=== PATIENT | female | born 1930 | race Caucasian/White ===

== ENCOUNTER 2016-09-23 13:46 | Emergency (ER) | payer MEDICARE ==
[2016-09-23] MEDS ORDERED: traMADol 50 MG TABLET PO STA (14:27)
[2016-09-23] MEDS ORDERED: traMADol 50 MG TABLET PO ONE (14:29)
[2016-09-23] MEDS ORDERED: DEXAMETHASONE 10 MG/ML VIAL PO STA (14:29)
[2016-09-23] MEDS ORDERED: DEXAMETHASONE 10 MG/ML VIAL ONE (14:33)
[2016-09-23] MEDS ORDERED: CHERRY SYRUP 10 ML UDC PO ONE (14:33)
== END 2016-09-23 17:02 | disposition home or self-care (01) ==
DX: M25.561 Pain in right knee (principal); M17.11 Unilateral primary osteoarthritis, right knee; M81.0 Age-related osteoporosis without current pathological fracture; I48.91 Unspecified atrial fibrillation; Z79.01 Long term (current) use of anticoagulants
CPT/HCPCS: 73564; 93971; 99283; A9270

== ENCOUNTER 2017-05-26 03:02 | Outpatient (CLI) | payer MEDICARE | END 2017-05-26 03:03 | disposition short-term general hospital (02) | LOC: EMS 03:02 | PROVIDERS: ATTEND Surgery | DX: R51 Headache (principal); W18.39XA Other fall on same level, initial encounter; Y92.003 Bedroom of unspecified non-institutional (private) residence as the place of occurrence of the external cause | CPT/HCPCS: A0425; A0429 ==

== ENCOUNTER 2017-09-25 09:08 | Outpatient (CLI) | payer MEDICARE | END 2017-09-25 09:09 | disposition EMS.NT | LOC: EMS 09:08 | PROVIDERS: ATTEND Surgery | DX: S70.311A Abrasion, right thigh, initial encounter (principal); W06.XXXA Fall from bed, initial encounter; Y92.003 Bedroom of unspecified non-institutional (private) residence as the place of occurrence of the external cause ==

== ENCOUNTER 2017-10-26 15:29 | Outpatient (CLI) | payer MEDICARE | END 2017-10-26 23:59 | disposition EMS.NT | LOC: EMS 15:29 | PROVIDERS: ATTEND Surgery | DX: R44.3 Hallucinations, unspecified (principal); R45.89 Other symptoms and signs involving emotional state ==

== ENCOUNTER 2017-11-01 08:00 | Outpatient (CLI) | payer MEDICARE ==
[2017-11-01 19:17] LABS: BILIRUBIN,URINE NEGATIVE (NEGATIVE); GLUCOSE, URINE (UA) NEGATIVE (NEGATIVE); KETONES,URINE (UA) NEGATIVE (NEGATIVE); LEUKOCYTE ESTERASE, URINE NEGATIVE (NEGATIVE); NITRITE,URINE NEGATIVE (NEGATIVE); OCCULT BLOOD,URINE NEGATIVE (NEGATIVE); PH,URINE 6.5 PH (5.0-7.5); PROTEIN,URINE NEGATIVE (NEGATIVE); UROBILINOGEN,URINE 0.2 (NORMAL) E.U./dL (NORMAL)
[2017-11-01 19:27] LABS: BACTERIA,URINE Few /HPF (None Seen); CLARITY,URINE CLEAR (CLEAR); CRYSTALS,URINE 3-5 Calcium Oxalate /LPF; RBC,URINE None Seen /HPF (0-5); SQUAMOUS EPITHELIAL CELL,UR MANY Squamous (<= Few)
== END 2017-11-01 08:01 | disposition home or self-care (01) ==
LOC: LAB.WCP 08:00
PROVIDERS: ATTEND Physician Assistant Medical
DX: R41.0 Disorientation, unspecified (principal); R53.1 Weakness
CPT/HCPCS: 81001; 87086

== ENCOUNTER 2017-11-18 14:11 | Outpatient (CLI) | payer MEDICARE ==
[2017-11-18 18:55] LABS: BASOPHILS % (AUTO) 0.4 %; EOSINOPHILS # (AUTO) 0.1 10^3/uL (0.0-0.7); EOSINOPHILS % (AUTO) 1.5 %; HGB - HEMOGLOBIN 12.5 g/dL (12.0-16.0); LYMPHOCYTES # (AUTO) 1.4 10^3/uL (1.5-3.5); LYMPHOCYTES % (AUTO) 27.1 %; MEAN CORPUSCULAR HEMOGLOBIN 31.2 pg (27.0-31.0); MEAN CORPUSCULAR HGB CONC 33.4 g/dL (32.0-36.0); MEAN CORPUSCULAR VOLUME 93.2 fL (81.0-99.0); MONOCYTES # (AUTO) 0.4 10^3/uL (0.0-1.0); NEUTROPHILS # (AUTO) 3.3 10^3/uL (1.5-6.6); PLT - PLATELET COUNT 207 10^3/uL (130-450); RED BLOOD COUNT 4.01 10^6/uL (4.20-5.40); RED CELL DISTRIBUTION WIDTH 14.1 % (12.0-15.0); WHITE BLOOD COUNT 5.2 x10^3/uL (4.8-10.8)
[2017-11-18 19:10] LABS: ALBUMIN 3.7 g/dL (3.2-5.5); ALBUMIN/GLOBULIN RATIO 1.2 (1.0-2.2); ALKALINE PHOSPHATASE 51 IU/L (42-121); ALT ALANINE AMINOTRANSFERASE 16 IU/L (10-60); AST ASPARTATE AMINOTRANSFERASE 28 IU/L (10-42); BILIRUBIN,TOTAL 0.7 mg/dL (0.2-1.0); BUN - BLOOD UREA NITROGEN 21 mg/dL (6-20); CARBON DIOXIDE - CO2 24 mmol/L (21-32); CHLORIDE 107 mmol/L (101-111); CREATININE 0.9 mg/dL (0.4-1.0); GFR - MDRD 59 (>89); GLUCOSE 97 mg/dL (70-100); SODIUM 139 mmol/L (135-145); TOTAL PROTEIN 6.7 g/dL (6.7-8.2)
[2017-11-18 19:16] LABS: THYROID STIMULATING HORMONE 2.37 uIU/mL (0.34-5.60)
== END 2017-11-18 14:12 | disposition home or self-care (01) ==
LOC: LAB.WCP 14:11
PROVIDERS: ATTEND Physician Assistant Medical
DX: R41.0 Disorientation, unspecified (principal); R53.1 Weakness
CPT/HCPCS: 36415; 80053; 82607; 84443; 85025

== ENCOUNTER 2017-11-28 14:15 | Outpatient (CLI) | payer MEDICARE ==
[~2017-11-28 14:15] MED LIST: GADOBUTROL 10 MMOL/10 ML SYRINGE ONE
[2017-11-28] MEDS ORDERED: GADOBUTROL 10 MMOL/10 ML SYRINGE IVP ONE (15:38)
--- NOTE | 2017-11-29 17:28 | MRI Report ---
EXAM: MRI BRAIN WITHOUT AND WITH CONTRAST EXAM DATE: 11/28/2017 04:00 PM. CLINICAL HISTORY: MUSCLE WEAKNESS, CONFUSION. COMPARISON: CT head 06/09/2008 TECHNIQUE: Multiplanar, multisequence T1-weighted and fluid-sensitive MR sequences of the brain were performed. Sequences optimized for routine evaluation. Other: None. IV Contrast: Yes. 8.5 mL Gadavist FINDINGS: Brain Volume: Moderate diffuse cerebral volume loss with exvacuo dilatation of the ventricles and sul ci, appropriate for age. Parenchyma: No acute hemorrhage, mass, or infarct. Moderate scattered periventricular and deep white matter T2/FLAIR hyperintense white matter lesions. No abnormal enhancement. No parenchymal foci of moreno sceptibility artifact. Ventricles/Cisterns: Mild ex vacuo enlargement of the ventricles, slightly increased since the prior study. Orbits: Status post bilateral lens replacement surgery. Otherwise unremarkable. Sella Turcica: The pituitary gland, cavernous sinuses, suprasellar cistern and optic chiasm are unrem arkable. IAC: Symmetric and unremarkable. Vasculature: Normal signal flow void is seen in the major arterial structures at the skull base. The dural sinuses are patent and enhance normally. Sinuses: No acute sinus disease. Bones: No focal pathologic appearing marrow signal changes. Other: None. IMPRESSION: 1. No MRI evidence of acute intracranial abnormality. Specifically, no evidence of acute or subacute infarct, acute intracranial hemorrhage, mass, midline shift, or hydrocephalus. No abnormal intracran ial enhancement. 2. Moderate diffuse cerebral volume loss with exvacuo dilatation of the ventricles and sulci, appropr iate for age. 3. Moderate scattered T2/FLAIR hyperintense periventricular and deep white matter lesions. 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 [facility] Referring Provider Line: [phone] SITE ID: [id number]
== END 2017-11-28 14:16 | disposition home or self-care (01) ==
LOC: DI 14:15
PROVIDERS: ATTEND Physician Assistant Medical
DX: M62.81 Muscle weakness (generalized) (principal); R41.0 Disorientation, unspecified
CPT/HCPCS: 70553; A9585

== ENCOUNTER 2017-12-02 13:53 | Outpatient (CLI) | payer MEDICARE | END 2017-12-02 13:54 | disposition home or self-care (01) | LOC: DI 13:53 | PROVIDERS: ATTEND Physician Assistant Medical | DX: R41.0 Disorientation, unspecified (principal); M62.81 Muscle weakness (generalized); I48.91 Unspecified atrial fibrillation; I51.7 Cardiomegaly | CPT/HCPCS: 93306 ==

== ENCOUNTER 2017-12-09 14:36 | Outpatient (CLI) | payer MEDICARE ==
--- NOTE | 2017-12-11 15:43 | Ultrasound Report ---
CAROTID DUPLEX: 12/09/2017 CLINICAL INDICATION: Muscle weakness, confusion. TECHNIQUE: Real-time sonographic vascular imaging was performed by the dock superintendent through the carotid arteries utilizing both color-flow and Doppler spectral analysis. Multiple cash posting representative static images were saved for review. RIGHT Vessel PSV cm/sec EDV cm/sec ICA/CCA RSV Ratio Degree of Stenosis Plaque Estimate % RCCA Prox 64 -- -- RCCA Dist 29 10 -- RECA 40 -- -- RT BULB 34 12 1.17 LILIANE Prox 98 18 3.38 LILIANE Mid 66 25 2.28 LILIANE Dist 50 18 1.72 RVA 42 -- -- RVA flow direction: Antegrade LEFT Vessel PSV cm/sec EDV cm/sec ICA/CCA RSV Ratio Degree of Stenosis Plaque Estimate % LCCA Prox 47 -- -- LCCA Dist 28 6 -- LECA 42 -- -- LFT BULB 27 5 0.96 LICA Prox 33 13 1.18 LICA Mid 60 21 2.14 LICA Dist 47 15 1.68 LVA 23 -- -- LVA flow direction: Antegrade Velocity criteria are extrapolated from diameter data as defined by the Society of Radiologists in Ultrasound Consensus Conference Radiology 2003; 229; 340-346. Degree of Stenosis % ICA PSV cm/sec ICA EDV cm/sec ICA/CCA PSV Ratio Plaque Estimate % Normal < 125 < 40 < 2.0 None <50 < 125 < 40 < 2.0 < 50 50-69 125-130 40-100 2.0-4.0 >/=50 >/=70 but less than near occlusion > 230 > 100 > 4.0 >/=50 Near occlusion High, low or undetectable Variable Variable Visible Total occlusion Undetectable Not applicable Not applicable No detectable lumen FINDINGS RIGHT: There is mild plaquing in the right carotid bifurcation. The right internal carotid artery is tortuous, contributing to the ratio elevation visualized. There is no evidence of a focal hemodynamically significant stenosis. LEFT: There is mild plaquing in the left carotid bifurcation. Tortuosity contributes to the ratio elevation visualized. There is no evidence of a focal hemodynamically significant stenosis. The vertebral arteries demonstrate antegrade flow bilaterally. IMPRESSION: TORTUOUS INTERNAL CAROTID ARTERIES, CONTRIBUTING TO THE ABNORMAL RATIOS, BUT NO EVIDENCE OF A FOCAL HEMODYNAMICALLY SIGNIFICANT CAROTID STENOSIS. TD: 12/10/2017 10:14 ZACK
== END 2017-12-09 14:37 | disposition home or self-care (01) ==
LOC: DI 14:36
PROVIDERS: ATTEND Physician Assistant Medical
DX: R41.0 Disorientation, unspecified (principal); I77.1 Stricture of artery
CPT/HCPCS: 93880